=== PATIENT | female | born 1960 | race Caucasian/White ===

== ENCOUNTER → 2017-01-24 | Outpatient (CLI) | payer OTHER ==
[~2017-01-24] MED LIST: ASPEC325 PO; CLB200 PO; CLR10 PO; CRS/10 PO; FIBER; GABA-113 PO; HYDR-5688 PO; MELO7.5T5 PO; MULT-506 PO; OXYC1TAB3 PO; OXYSR10 PO; POLY335019 PO; SNK PO; TRAM-10 PO; [UNRECOGNIZED DRUG - OTHER]; [UNRECOGNIZED DRUG - OTHER] PO
--- NOTE | 2017-01-24 13:30 | DIAGNOSTIC IMAGING REPORT ---
LEFT LOWER EXTREMITY VENOUS DOPPLER HISTORY: PAIN OF L LOWER LEG, L LEG SWELLING COMPARISON STUDY: None. FINDINGS: There is normal compressibility, flow, and augmentation within the left lower extremity deep venous system. IMPRESSION: No DVT within the left lower extremity. Electronically signed by: Cabrera Werner M.D. 01/24/2017 1:29 PM Dictated Date/Time: 01/24/2017 1:28 PM
== END | disposition home or self-care (01) ==
LOC: C.ULTRBC 12:59
PROVIDERS: ATTEND Nurse Practitioner
DX: M79.662 Pain in left lower leg (principal); M79.89 Other specified soft tissue disorders

== ENCOUNTER → 2017-06-04 | Outpatient (CLI) | payer OTHER ==
[~2017-06-04] MED LIST changes: -ASPEC325 PO; -CLB200 PO; -HYDR-5688 PO; -OXYSR10 PO; -SNK PO; -[UNRECOGNIZED DRUG - OTHER]; -[UNRECOGNIZED DRUG - OTHER] PO
--- NOTE | 2017-06-05 13:10 | MAMMOGRAPHY REPORT ---
BILATERAL DIGITAL SCREENING MAMMOGRAM TOMOSYNTHESIS WITH CAD: 06/04/2017 CLINICAL HISTORY: Routine screening. TECHNIQUE: Breast tomosynthesis in addition to standard 2D mammography was performed. Current study was also evaluated with a Computer Aided Detection (CAD) system. COMPARISON: Comparison is made to exams dated: 06/01/2016 mammogram, 05/18/2015 mammogram, 01/14/2014 m ammogram, 12/04/2012 mammogram, 11/29/2011 mammogram, and 11/23/2010 mammogram - [facility] enter. BREAST COMPOSITION: There are scattered areas of fibroglandular density in both breasts. FINDINGS: There are stable benign calcifications scattered bilaterally. A fluctuating circumscribed 5 mm round mass in the upper inner posterior right breast appears very similar in size to the 2013 ma mmograms, and on some prior mammograms was marked with a circular mole marker, could represent a fluc tuating epidermal inclusion cyst. No suspicious spiculated or irregular mass, architectural distorti on or cluster of new, suspicious microcalcifications is seen. IMPRESSION: ACR BI-RADS CATEGORY 1: NEGATIVE There is no mammographic evidence of malignancy. A 1 year screening mammogram is recommended. The pa tient will receive written notification of the results. Approximately 10% of breast cancers are not detected with mammography. A negative mammographic report should not delay biopsy if a clinically suggestive mass is present. Monse Leone M.D. ay/:06/04/2017 17:08:12 [employer] Electrician: Kelsi PEREZ(R)([place]), [facility] letter sent: Normal 1/2 BI-RADS Code: ACR BI-RADS Category 1: Negative
== END | disposition home or self-care (01) ==
LOC: C.MAMM 16:21
PROVIDERS: ATTEND Physician Assistant
DX: Z12.31 Encounter for screening mammogram for malignant neoplasm of breast (principal)

== ENCOUNTER 2017-06-17 23:05 | Emergency (ER) | payer OTHER ==
[~2017-06-17] VITALS: Ht 165.1 cm; Wt 112.6 kg
[~2017-06-17 23:05] MED LIST changes: -GABA-113 PO; -OXYC1TAB3 PO
[2017-06-17 23:10] VITALS: BP 167/81; TEMP 36.6; Ht 165.1 cm; Wt 112.6 kg
[2017-06-17] MEDS ORDERED: OXYCODONE HCL IR 5 MG TAB (IMMEDIATE RELEASE) PO STA (23:18)
[2017-06-17] MEDS ORDERED: MoRPHine SULFATE 10 MG/ML CARP/VIAL IM STA (23:23)
[2017-06-17] MEDS ORDERED: GABA-113 PO (23:53)
--- NOTE | 2017-06-18 01:09 | EMERGENCY ROOM VISIT NOTE ---
History First contact with patient: 23:11 Chief Complaint: LEG PAIN,LEG INJURY Stated Complaint: LEFT LEG PAIN History of Present Illness The patient is a 56 year old female who presents to the Emergency Room with complaints of ongoing left lower leg pain for the past several months who has had EMG studies ultrasound studies x-rays who has seen pain management and orthopedics with unclear etiology of her symptoms. Patient has been ambulating with a cane. Patient has been doing more walking though after going to [place] for holiday. No history DVT in this leg. She describes pain as aching , ranging in severity 9 out of 10 worse with movement and better with rest. She has tried anti-inflammatories and Vicodin with no improvement of symptoms. No new injury. Patient denies chest pain, dyspnea, fever, chills, numbness, tingling, knee pain, foot pain. She follows at [facility] orthopedics. Review of Systems See HPI for pertinent positives & negatives. A total of 10 systems reviewed and were otherwise negative. Past Medical/Surgical History Medical Problems: (1) Dyslipidemia (2) Osteoarthritis Surgical Problems: (1) S/P left knee arthroscopy (2) S/P UPPP (uvulopalatopharyngoplasty) (3) Status post right knee replacement Social History Smoking Status: Never Smoker Marital Status: Housing Status: lives with significant other Occupation Status: employed Current/Historical Medications Scheduled Gabapentin (Neurontin), 600 MG PO BID Meloxicam (Mobic), 15 MG PO DAILY Multivitamin (Multivitamin), 1 TAB PO DAILY Polyethylene Glycol 3350 (Miralax), 17 GM PO DAILY Rosuvastatin Calcium (Crestor), 10 MG PO QAM Scheduled PRN Loratadine (Claritin), 10 MG PO QAM PRN for prn Tramadol (Ultram), 1 TAB PO DAILY PRN for Pain Physical Exam Vital Signs Date Time Temp Pulse Resp B/P (MAP) Pulse Ox O2 Delivery O2 Flow Rate FiO2 06/17/17 23:10 36.6 61 20 167/81 96 Room Air Physical Exam VITALS: Vitals are noted on the nurse's note and reviewed by myself. Vital signs hypertensive GENERAL: Pleasant female, in no acute distress, nondiaphoretic, well-developed well-nourished. SKIN: Capillary reflex less than 2 seconds. HEENT: Normocephalic. PERRLA. EOMI. Nares patent. Mucous membranes moist. Neck is supple without nuchal rigidity. HEART: Regular rate and rhythm without murmurs gallops or rubs. LUNGS: Clear to auscultation bilaterally without wheezes, rales or rhonchi. No retractions or accessory muscle use. ABDOMEN: Positive bowel sounds x 4. Normal tympanic percussion. Soft, nontender, without masses or organomegaly. Glez sign negative. No guarding or rebound tenderness. MUSCULOSKELETAL: No gross musculoskeletal defects. No pedal edema. Left calf tenderness. Left knee ankle and foot nontender to palpation. Pedal pulses +2 equal present bilaterally. Multiple Varicose veins are present. NEURO: Patient was alert and oriented to person place and time. Normal sensation to light and sharp touch. No focal neurological deficits. Medical Decision & Procedures Medications Administered Medications (Trade) Dose Ordered Sig/Star Route Start Time Stop Time Status Last Admin Dose Admin Morphine Sulfate (MoRPHine SULFATE INJ) 8 mg NOW STAT IM 06/17/17 23:23 06/17/17 23:24 DC 06/17/17 23:32 8 MG ED Course Prior records reviewed and summarized above. Triage Nursing notes reviewed. Additional history obtained from the family. The patient's history was concerning for swelling and pain in the leg. Differential diagnosis: Etiologies such as DVT, musculoskeletal, infection, joint effusion, trauma, lymphedema, idiopathic, CHF, as well as others were entertained.. Physical examination: The physical examination revealed no signs of infection. Neurovascularly intact. ER treatment provided: Morphine On reassessment the patient felt better. Diagnostics interpreted by me: Imaging studies: Negative for DVT This appears to be consistent with ongoing left lower leg pain. Patient had extensive workup on this leg. She is advised to follow-up with her orthopedic doctor and pain management in the next few days. Patient was neurovascularly and neurologically intact. She is well-appearing. No new injury. She is advised to return to the ER really for severe pain, numbness, tingling, worsening signs or symptoms or as needed. By the evaluation outlined above emergent etiologies such as DVT, septic joint, trauma, infection, CHF, as well as others were deemed relatively unlikely. The pt informed about the findings as listed above. All questions were answered and pleased with the treatment. Return instructions were outlined and the patient was discharged in stable condition. Outpatient prescription management: OxyIR Referral: The patient was referred back to their pain management and orthopedics for follow-up in 2 to 3 days for a recheck of the current condition. Medical Decision As above Medication Reconcilliation Current Medication List: was personally reviewed by me Blood Pressure Screening Patient's blood pressure: Elevated blood pressure Blood pressure disposition: Elevated BP felt to be situational Impression Primary Impression: Leg pain, left Departure Information Dispostion Home / Self-Care Condition GOOD Referrals Trudy Dupont PA-C (PCP) Patient Instructions My [facility] Additional Instructions DO NOT drive, drink alcohol, operate machinery, or perform dangerous activities today. You were given medications in the ER that can affect your ability to safely function or operate a vehicle. Oxycodone (OxyIR) 5mg: Take 1-2 pills every four hours for breakthrough pain. Avoid alcohol, operating machinery or dangerous equipment, working on ladders or roofs, DRIVING, or situations where being under the influence may be dangerous. It is recommended to use an ijns-svy-lgxvrvs stool softener such as Colace, 100mg twice daily while taking this medication to avoid constipation. Ibuprofen(Motrin, Advil) may be used for fever or pain. Use 600mg every six hours as needed. Take with food. Avoid using more than 2400mg in a 24 hour period. Do not use 2400mg per day for more than three consecutive days without physician direction. Prolonged inappropriate use can lead to stomach upset or ulcers. This medication can be taken if you need to drive, work, or perform activities which may be dangerous when taking narcotic pain medication. (AND/OR) Acetaminophen(Tylenol) may be used for fever or pain. Use 1000mg every six hours as needed. Avoid using more than 3000mg in a 24 hour period. This medication can be taken if you need to drive, work, or perform activities which may be dangerous when taking narcotic pain medication. Continue to use your cane. Continue current medications. Return to the ER immediately for any numbness, tingling, severe pain, extreme swelling in the extremity or as needed. Call your Orthopedics tomorrow to arrange follow up along with your pain management.
[2017-06-18 01:10] VITALS: PULSE 55; O2SAT 95
[2017-06-18] MEDS ORDERED: OXYC1TAB3 PO (01:11)
[2017-06-18] MEDS ORDERED: OXYCODONE IR HOME PACK PO ONE (01:15)
--- NOTE | 2017-06-18 06:54 | DIAGNOSTIC IMAGING REPORT ---
LEFT VENOUS DOPP LOWER EXT UNILAT CLINICAL HISTORY: left leg pain pain. Edema. TECHNIQUE: Venous Doppler COMPARISON STUDY: 01/24/2017 FINDINGS: Normal study IMPRESSION: Normal study The above report was generated using voice recognition software. It may contain grammatical, syntax or spelling errors. Electronically signed by: John Jennings M.D. 06/18/2017 6:53 AM Dictated Date/Time: 06/18/2017 6:52 AM
== END 2017-06-18 01:30 | disposition home or self-care (01) ==
LOC: C.EDB 23:06 → C.EDC 06-18 01:30
DX: M79.605 Pain in left leg (principal); E78.5 Hyperlipidemia, unspecified; M19.90 Unspecified osteoarthritis, unspecified site; Z79.899 Other long term (current) drug therapy

== ENCOUNTER → 2017-07-03 | Outpatient (CLI) | payer OTHER ==
[~2017-07-03] MED LIST changes: -FIBER; +GABA-113 PO; +OXYC1TAB3 PO
--- NOTE | 2017-07-03 11:42 | DIAGNOSTIC IMAGING REPORT ---
LEFT KNEE MRI HISTORY: L KNEE Pain/numbness, positive TINEL'S AT FIB HEAD COMPARISON STUDY: None. TECHNIQUE: Multiplanar multisequence MRI of the left knee was performed according to standard department protocol without the use of contrast. FINDINGS: Menisci: The lateral meniscus is intact. There is an oblique tear extending to the undersurface of the body and anterior horn of the medial meniscus. Ligaments: The anterior and posterior cruciate ligaments are intact. The medial and lateral collateral ligaments are normal in appearance. Extensor mechanism: The quadriceps tendon and patellar ligament are intact. Articular cartilage and bone: No fracture or dislocation. Mild cartilage thinning within the medial femoral condyle with small marginal osteophytes at the medial compartment. Mild cartilage fraying within the patellar facet. Joint effusion: Small joint effusion. Soft tissues: Mild subcutaneous edema throughout the knee. Prominent superficial varicosities anteriorly. The visualized sciatic nerve and common peroneal nerve are normal in caliber. IMPRESSION: 1. Oblique tear extending to the undersurface of the anterior horn and body of the medial meniscus. 2. Mild osteoarthritis at described above. 3. Small joint effusion. Electronically signed by: Cabrera Werner M.D. 07/03/2017 11:41 AM Dictated Date/Time: 07/03/2017 11:22 AM
== END | disposition home or self-care (01) ==
LOC: C.MRI 09:55
PROVIDERS: ATTEND Physician Assistant
DX: S83.242A Other tear of medial meniscus, current injury, left knee, initial encounter (principal); S84.12XD Injury of peroneal nerve at lower leg level, left leg, subsequent encounter; X58.XXXD Exposure to other specified factors, subsequent encounter; M25.462 Effusion, left knee; X58.XXXA Exposure to other specified factors, initial encounter

== ENCOUNTER 2017-09-22 15:01 | Emergency (ER) | payer OTHER ==
[~2017-09-22] VITALS: Ht 165.1 cm; Wt 110.1 kg
[2017-09-22 15:07] VITALS: Ht 165.1 cm; Wt 110.1 kg
[2017-09-22] MEDS ORDERED: MoRPHine SULFATE 4 MG/ML 1 ML CARP\\VIAL IV STA ×2 (15:09→16:37)
[2017-09-22] MEDS ORDERED: ONDANSETRON INJ 2 MG/ML 2 ML VIAL IV STA (15:09)
[2017-09-22 15:13] VITALS: O2SAT 98
--- NOTE | 2017-09-22 15:17 | EMERGENCY ROOM VISIT NOTE ---
History First contact with patient: 15:01 Chief Complaint: CALF PAIN Stated Complaint: CALF PAIN History of Present Illness The patient is a 57 year old female who presents to the Emergency Room via ambulance with complaints of "left calf pain". The patient states that she is status post left total knee replacement this past Sunday performed at [facility] by Dr. Dubose. The patient states that she has been doing well and was discharged home on . She has been receiving Lovenox injections into the abdominal region successfully. She states that last night she developed left lateral pain into the calf region. She rates the pain as an 8-10 /10. She denies any chest pain or shortness of breath. She was encouraged to come here to rule out DVT. She called the orthopedic floor at [facility] and was informed that Dr. Dubose does not have anybody shell mold bonder for him on the weekends. Review of Systems A complete 10-point Review of Systems was discussed with the patient, with pertinent positives and negatives listed in the History of Present Illness. All remaining Review of Systems questions can be considered negative unless otherwise specified. Past Medical/Surgical History Medical Problems: (1) Dyslipidemia (2) Osteoarthritis Surgical Problems: (1) S/P left knee arthroscopy (2) S/P UPPP (uvulopalatopharyngoplasty) (3) Status post right knee replacement Social History Smoking Status: Never Smoker Marital Status: Housing Status: lives with significant other Occupation Status: employed Current/Historical Medications Scheduled Enoxaparin (Lovenox), 30 MG SQ Q12H Enoxaparin (Lovenox), 100 MG SQ Q12 Ferrous Sulfate (Iron), 1 TAB PO DAILY Folic Acid (Folvite), 1 MG PO DAILY Ondasetron Odt (Zofran Odt), 4 MG SL Q6H Polyethylene Glycol 3350 (Miralax), 17 GM PO QPM Rosuvastatin Calcium (Crestor), 10 MG PO QAM Scheduled PRN Hydrocodone/Acetaminophen 5MG/325MG ([place] 5MG/325MG), 1 TABLET PO Q4 PRN for Pain Oxycodone/Acetaminophen 5MG/325MG (Percocet 5MG/325MG), 1 TABLET PO Q4H PRN for Pain Tramadol (Ultram), 50 MG PO DAILY PRN for Pain Physical Exam Vital Signs Date Time Temp Pulse Resp B/P (MAP) Pulse Ox O2 Delivery O2 Flow Rate FiO2 09/22/17 19:29 36.6 70 18 135/68 95 Room Air 09/22/17 17:36 67 18 131/65 94 Room Air 09/22/17 15:48 73 18 131/63 93 Room Air 09/22/17 15:20 70 09/22/17 15:13 98 Room Air 09/22/17 15:07 36.5 85 18 133/73 98 Room Air Physical Exam VITAL SIGNS - Vital signs and nursing notes were reviewed. Stable. Non- tachycardic. Saturating well on room air. GENERAL -57-year-old female appearing her stated age who is in no acute distress. Communicates well with provider and answers questions appropriately. SKIN - Without rashes. There is a healing surgical incision of the patient's left anterior knee. There are Steri-Strips in place. No erythema or drainage. HEAD - NC/AT. EYES - Sclera anicteric. EARS - No deformities of external structures noted on gross examination bilaterally. NOSE - Midline and without cyanosis. No epistaxis or purulent drainage noted. MOUTH/OROPHARYNX - Without perioral cyanosis. LUNGS - Chest wall symmetric without accessory muscle use, intercostals retractions, or central cyanosis. Normal vesicular breath sounds CTA B/L. No wheezes, rales, or rhonchi appreciated. CARDIAC - RRR with S1/S2. No murmur, rubs, or gallops appreciated. EXTREMITIES - No clubbing or peripheral cyanosis. No pretibial edema present. + 5/5 strength noted in UE/LE bilaterally. Left anterior knee incision, closed. No drainage. Left calf tendera NEUROLOGIC - Cranial nerves II through XII grossly intact. Medical Decision & Procedures ER Provider Diagnostic Interpretation: ULTRASOUND L VENOUS DOPP LOWER EXT UNILAT CLINICAL HISTORY: Left calf pain. History of left knee arthroplasty. COMPARISON STUDY: 06/18/2017 FINDINGS: The study was very limited from a technical standpoint. No thrombus is visualized in the common femoral vein. The patient was unable to tolerate compressions within the distal femoral vein or calf. The patient was unable to move her leg. The popliteal vein was nonvisualized. IMPRESSION: Very limited study from a technical standpoint. No DVT identified. Electronically signed by: Ronnie Caruso M.D. 09/22/2017 4:15 PM Dictated Date/Time: 09/22/2017 4:13 PM Laboratory Results 09/22/17 15:28 Red Blood Count 4.36, Mean Corpuscular Volume 88.3, Mean Corpuscular Hemoglobin 30.0, Mean Corpuscular Hemoglobin Concent 34.0, Mean Platelet Volume 9.0, Neutrophils (%) (Auto) 56.9, Lymphocytes (%) (Auto) 29.8, Monocytes (%) (Auto) 9.6, Eosinophils (%) (Auto) 2.9, Basophils (%) (Auto) 0.5, Neutrophils # (Auto) 4.34, Lymphocytes # (Auto) 2.27, Monocytes # (Auto) 0.73, Eosinophils # (Auto) 0.22, Basophils # (Auto) 0.04 09/22/17 15:28 Test 09/22/17 15:09 09/22/17 15:28 White Blood Count 7.62 K/uL (4.8-10.8) Red Blood Count 4.36 M/uL (4.2-5.4) Hemoglobin 13.1 g/dL (12.0-16.0) Hematocrit 38.5 % (37-47) Mean Corpuscular Volume 88.3 fL (80-100) Mean Corpuscular Hemoglobin 30.0 pg (25-34) Mean Corpuscular Hemoglobin Concent 34.0 g/dl (32-36) Platelet Count 250 K/uL (130-400) Mean Platelet Volume 9.0 fL (7.4-10.4) Neutrophils (%) (Auto) 56.9 % Lymphocytes (%) (Auto) 29.8 % Monocytes (%) (Auto) 9.6 % Eosinophils (%) (Auto) 2.9 % Basophils (%) (Auto) 0.5 % Neutrophils # (Auto) 4.34 K/uL (1.4-6.5) Lymphocytes # (Auto) 2.27 K/uL (1.2-3.4) Monocytes # (Auto) 0.73 K/uL (0.11-0.59) Eosinophils # (Auto) 0.22 K/uL (0-0.5) Basophils # (Auto) 0.04 K/uL (0-0.2) RDW Standard Deviation 42.6 fL (36.4-46.3) RDW Coefficient of Variation 13.3 % (11.5-14.5) Immature Granulocyte % (Auto) 0.3 % Immature Granulocyte # (Auto) 0.02 K/uL (0.00-0.02) Prothrombin Time 10.5 SECONDS (9.0-12.0) Prothromb Time International Ratio 1.0 (0.9-1.1) Activated Partial Thromboplast Time 26.4 SECONDS (21.0-31.0) Partial Thromboplastin Ratio 1.0 Anion Gap 10.0 mmol/L (3-11) Est Creatinine Clear Calc Drug Dose 97.2 ml/min Estimated GFR () 98.0 Estimated GFR (Non- 84.5 BUN/Creatinine Ratio 13.2 (10-20) Calcium Level 9.1 mg/dl (8.5-10.1) Magnesium Level 2.1 mg/dl (1.8-2.4) Total Bilirubin 0.4 mg/dl (0.2-1) Aspartate Amino Transf (AST/SGOT) 33 U/L (15-37) Alanine Aminotransferase (ALT/SGPT) 42 U/L (12-78) Alkaline Phosphatase 68 U/L (45-117) Troponin I < 0.015 ng/ml (0-0.045) Total Protein 7.0 gm/dl (6.4-8.2) Albumin 3.0 gm/dl (3.4-5.0) Globulin 4.0 gm/dl (2.5-4.0) Albumin/Globulin Ratio 0.8 (0.9-2) Medications Administered Medications (Trade) Dose Ordered Sig/Star Route Start Time Stop Time Status Last Admin Dose Admin Morphine Sulfate (MoRPHine SULFATE INJ) 4 mg NOW STAT IV 09/22/17 15:09 09/22/17 15:12 DC 09/22/17 15:31 4 MG Ondansetron HCl (Zofran Inj) 4 mg NOW STAT IV 09/22/17 15:09 09/22/17 15:12 DC 09/22/17 15:29 4 MG Morphine Sulfate (MoRPHine SULFATE INJ) 4 mg NOW STAT IV 09/22/17 16:37 09/22/17 16:38 DC 09/22/17 16:44 4 MG Ondansetron HCl (ZOFRAN ODT 4MG Home Pack) 1 [facility] UD STAT PO 09/22/17 18:47 09/22/17 18:48 DC 09/22/17 19:36 1 [facility] Medical Decision Patient was seen and evaluated as above. She presents to us today with left calf pain via ambulance. Apparently the patient tried to contact the orthopedic surgeon who performed this and was unsuccessful in doing so. She then came here via ambulance for the left calf pain. She states that this began last night. She is on a 30 mg twice a day dose of Lovenox for prevention of clot. Ultrasound was obtained that the patient was in too much pain secondary to this. Examination is concerning for that for either a DVT or hematoma/extravasation of blood into the leg. Because she has excellent pulses , and the leg is not swollen, nor is it hard or exquisitely tender throughout I do not believe compartment syndrome is the case. The main concern at this time is either postoperative pain/hematoma or DVT. The ultrasound unfortunately was not able to see DVT but was very limited secondary to the patient pain/ discomfort despite her given morphine her pain and Zofran for nausea while here in the emergency department. The IV access was obtained and the above workup was performed. There is no leukocytosis or anemia. Coags are normal. Patient metabolic panel reveals normal kidney function and no evidence of liver failure. Troponin negative. Patient's EKG does reveal normal sinus rhythm. There is no ectopy or ischemic change. This was obtained secondary to the concern for DVT/migration to cause PE. There is no chest pain or shortness of breath. She is not tachycardic and is saturating well on room air. We were eventually able to discuss the case with the physician campus administrative assistant who works with Dr. Dubose. This was with Sharmila Ludwig PA-C. She recommended increasing the Lovenox dose to 100 mg twice a day and having him follow up with her or Dr. Dubose on Sunday or Sunday of this coming week. The patient is to call the office to arrange follow-up. I do believe this is reasonable. Case was also discussed with the attending physician. Patient will also be given a prescription for Zofran for any potential nausea. The patient at this time was fairly educated upon the chance of if there is a small amount of bleeding that the increased Lovenox dose can increase this. We were in agreement that at this time the risk of not further anticoagulating is a higher risk. Because the chance of DVT is still very possible this is why the Lovenox will be initiated. Patient was educated upon management, educated upon worrisome symptoms in which to return, had questions prior discharge, and was discharged home in good condition. Because of the time a day the patient was given the first 24 hour supply of Lovenox here from the emergency Department. She is to take her first dose at 8 PM which is when she was scheduled to take her other dose of Lovenox as well as this in 12 hours. In evaluation treatment this patient following differential diagnoses were entertained: DVT, compartment syndrome, extravasation/hematoma, among others. Impression Primary Impression: Pain of left calf Departure Information Dispostion Home / Self-Care Condition GOOD Prescriptions Ondasetron Odt (ZOFRAN ODT) 4 Mg Tab 4 MG SL Q6H for Nausea, #20 TAB Prov: Wei Rider PA-C 09/22/17 Enoxaparin (LOVENOX) 100 Mg/Ml Inj 100 MG SQ Q12 for 7 Days, #14 SYR Prov: Wei Rider PA-C 09/22/17 Referrals rTudy Dupont PA-C (PCP) Patient Instructions ED Compartment Syndrome At Risk For, My [facility] Additional Instructions You have been treated in the Emergency Department for Knee Pain/calf pain. You have received pain medicine in the emergency department which impairs your ability to operate a vehicle. It is illegal for you to drive after receiving these medicines. Lovenox 100mg every 12 hours until you see orthopedics by calling their office sunday. Zofran for nausea For pain control, you can use the following [id number] medicines: - Regular strength (325mg/tab) Tylenol (acetaminophen) 2 tabs every 4-6 hours as needed. Do not exceed 12 tablets in a 24 hour period. Avoid taking more than 3 grams (3000 mg) of Tylenol per day. This includes any other sources of acetaminophen you may take on a regular basis. - Regular strength (200 mg/tab) Advil (ibuprofen) 1-2 tabs every 4-6 hours as needed. Do not exceed a dose of 3200 mg per day. If this is a recent injury (<24 hrs), ice can be applied to the area of pain for the first 3 days to help decrease pain and inflammation. Ice massages can be performed by freezing water in a paper cup, peeling back the cup to expose the ice and then massaging over the affected area. Please follow-up with orthopedics by calling the Sunday. Any problems please return. Return to the Emergency Department if your current symptoms worsen despite treatment course outlined above.
[2017-09-22] MEDS ORDERED: OXYC-57 PO (15:40)
[2017-09-22] MEDS ORDERED: FOLI1TAB7 PO (15:40)
[2017-09-22] MEDS ORDERED: ENOX30IN4 SQ (15:40)
[2017-09-22] MEDS ORDERED: FERR1TAB61 PO (15:40)
[2017-09-22] MEDS ORDERED: HYDR-5688 PO (15:40)
[2017-09-22 15:41] LABS: BASO % 0.5 %; BASO ABS # 0.04 K/uL (0-0.2); COMPLETE YES; EOS % 2.9 %; HEMATOCRIT 38.5 % (37-47); IG% 0.3 %; LYMPH % 29.8 %; LYMPH ABS # 2.27 K/uL (1.2-3.4); MEAN CELL VOLUME 88.3 fL (80-100); MONO % 9.6 %; NEUT % 56.9 %; PLATELET COUNT 250 K/uL (130-400); RED BLOOD COUNT 4.36 M/uL (4.2-5.4); WHITE BLOOD COUNT 7.62 K/uL (4.8-10.8)
[2017-09-22 15:49] LABS: PROTHROMBIN TIME (PATIENT) 10.5 SECONDS (9.0-12.0)
[2017-09-22 15:56] LABS: ALT/SGPT 42 U/L (12-78); BLOOD UREA NITROGEN 10 mg/dl (7-18); BUN/CREATININE RATIO 13.2 (10-20); CALCIUM 9.1 mg/dl (8.5-10.1); CARBON DIOXIDE 26 mmol/L (21-32); CHLORIDE 103 mmol/L (98-107); CREATININE 0.77 mg/dl (0.60-1.20); GLUCOSE 107 mg/dl (70-99); MAGNESIUM 2.1 mg/dl (1.8-2.4); POTASSIUM 3.7 mmol/L (3.5-5.1); SODIUM 139 mmol/L (136-145)
[2017-09-22 16:01] LABS: ALB/GLOB RATIO 0.8 (0.9-2); ALKALINE PHOSPHATASE 68 U/L (45-117); AST/SGOT 33 U/L (15-37)
--- NOTE | 2017-09-22 16:16 | DIAGNOSTIC IMAGING REPORT ---
ULTRASOUND L VENOUS DOPP LOWER EXT UNILAT CLINICAL HISTORY: Left calf pain. History of left knee arthroplasty. COMPARISON STUDY: 06/18/2017 FINDINGS: The study was very limited from a technical standpoint. No thrombus is visualized in the common femoral vein. The patient was unable to tolerate compressions within the distal femoral vein or calf. The patient was unable to move her leg. The popliteal vein was nonvisualized. IMPRESSION: Very limited study from a technical standpoint. No DVT identified. Electronically signed by: Ronnie Caruso M.D. 09/22/2017 4:15 PM Dictated Date/Time: 09/22/2017 4:13 PM
[2017-09-22] MEDS ORDERED: ENOX100I SQ (18:21)
[2017-09-22] MEDS ORDERED: ENOXAPARIN 100 MG/1ML SYR SQ STA ×2 (18:22)
[2017-09-22] MEDS ORDERED: ONDA4TAB10 SL (18:40)
[2017-09-22] MEDS ORDERED: ONDANSETRON HOME PACK 4MG OD TAB PO STA (18:47)
[2017-09-22 19:29] VITALS: BP 135/68; PULSE 70; TEMP 36.6; O2SAT 95
== END 2017-09-22 19:30 | disposition home or self-care (01) ==
LOC: EDBD 15:01 → C.EDC 15:03
DX: M79.662 Pain in left lower leg (principal); E78.5 Hyperlipidemia, unspecified; M19.90 Unspecified osteoarthritis, unspecified site; Z96.653 Presence of artificial knee joint, bilateral; Z79.01 Long term (current) use of anticoagulants